=== PATIENT | female | born 1960 | race Caucasian/White ===

== ENCOUNTER → 2017-04-13 | Outpatient (CLI) | payer BC ==
[~2017-04-13] MED LIST: AUGMENTIN 875875 MG PO; COREG3.125 MG PO; DEXILANT60 M1 PO; DIOVAN80 M1 PO; LEVOFLOXACIN500 MG PO; PHARMASSURE L-500 MG PO; PREDNISONE10 MG PO; PREDNISONE20 M1 PO; ROBITUSSIN AC 110 ML PO; VALIUM5 MG PO; VICODIN 5/500 505 MG PO; VICODIN ES 7501 TAB PO
== END | disposition home or self-care (01) ==
LOC: RAD 14:11
DX: M25.561 Pain in right knee (principal)

== ENCOUNTER 2017-04-30 16:55 | Emergency (ER) | payer BC ==
[~2017-04-30] VITALS: Ht 152.4 cm; Wt 61.2 kg
[2017-04-30] MEDS ORDERED: ANAPROX DS550 MG PO (19:05)
== END 2017-04-30 19:13 | disposition home or self-care (01) ==
LOC: ED 16:55
DX: M25.561 Pain in right knee (principal); M25.551 Pain in right hip; F17.200 Nicotine dependence, unspecified, uncomplicated; Z79.899 Other long term (current) drug therapy; Z91.018 Allergy to other foods; W10.9XXA Fall (on) (from) unspecified stairs and steps, initial encounter; Y93.89 Activity, other specified; Y92.89 Other specified places as the place of occurrence of the external cause; Y99.9 Unspecified external cause status

== ENCOUNTER → 2017-10-25 | Outpatient (CLI) | payer BC ==
[~2017-10-25] MED LIST changes: +ANAPROX DS550 MG PO
[2017-10-25 06:59] LABS: HEMATOCRIT 46.1 % (37.0-47.0); MEAN CORPUSCULAR HGB 31.3 pg (27.0-31.0); MEAN CORPUSCULAR HGB CONC 32.5 g/dl (33.0-37.0); MEAN PLATELET VOLUME 10.6 fl (9.6-12.3); RED BLOOD COUNT 4.8 10*6/uL (4.10-5.10); RED CELL DISTRI WIDTH 13.1 % (0-14.5)
[2017-10-25 07:13] LABS: ALKALINE PHOSPHATASE 78 U/L (45-117); BUN 8 mg/dl (7-24); CHLORIDE 107 mmol/L (98-107); CHOLESTEROL 148 mg/dL (<200); CREATININE 0.75 mg/dL (0.55-1.02); HDL CHOLESTEROL 65 mg/dl (40-60); LDL CHOLESTEROL 64 mg/dL (9-159); POTASSIUM 3.8 mmol/L (3.5-5.1); SGOT/AST 12 IU/L (3-35); SGPT/ALT 19 U/L (12-78); SODIUM 141 mmol/L (136-145); TOTAL PROTEIN 7.2 gm/dL (6.4-8.2); TRIGLYCERIDES 94 mg/dl (<150); VLDL CHOLESTEROL 19 mg/dL (6-40)
== END | disposition home or self-care (01) ==
LOC: LAB 06:18
PROVIDERS: Family Medicine
DX: I10 Essential (primary) hypertension (principal); E78.00 Pure hypercholesterolemia, unspecified; E55.9 Vitamin D deficiency, unspecified; G47.00 Insomnia, unspecified

== ENCOUNTER 2018-05-18 06:40 | Inpatient (IN) | payer BC ==
--- NOTE | ~2018-05-18 | EKG ---
[place], [place] ELECTROCARDIOGRAM REPORT NAME: CHUYITA WEBB UNIT #: [id number] ROOM: 402 DOCTOR: IAN DRAFT REPORT BIRTHDATE: [birth year] [facility] Test Date: 2018-05-18 Test Time: 07:37:29 Pat Name: CHUYITA WEBB Department: Room: 402 Gender: F [employer] Driver: : 1960 Requested By: LAN FERNANDEZ Order Number: [id number] Reading MD: Cirilo Madsen MD Measurements Intervals [place] Rate: 80 P: 61 CT: 187 QRS: 54 QRSD: 80 T: 39 QT: 368 QTc: 425 Interpretive Statements Sinus rhythm Probable anteroseptal infarct, old No previous ECG available for comparison Electronically Signed On 05-18-2018 17:43:06 PST by Cirilo Madsen MD CM:EKGRPT:ELECTROCARDIOGRAM REPORT [id number] LAN SHIELDS DRAFT REPORT LAN FERNANDEZ DO
[2018-05-18 06:44] VITALS: BP 210/96
[2018-05-18 06:49] VITALS: BP 158/88
[2018-05-18 07:38] LABS: BASO # 0.1 10*3/uL (0.0-0.1); BASO % 0.9 % (0.0-1.0); EOS # 0.2 10*3/uL (0.0-0.4); EOS % 1.5 % (1.0-4.0); HEMATOCRIT 42.7 % (37.0-47.0); HEMOGLOBIN 14.9 g/dl (12.0-16.0); LYMPH # 2.7 10*3/uL (1.3-4.4); LYMPH % 22.7 % (27.0-41.0); MEAN CELL VOLUME 94.5 fl (81.0-99.0); MEAN CORPUSCULAR HGB CONC 34.9 g/dl (33.0-37.0); MEAN PLATELET VOLUME 10.1 fl (9.6-12.3); MONO # 0.8 10*3/uL (0.1-1.0); MONO % 6.8 % (3.0-9.0); NEUT # 7.9 10*3/uL (2.3-7.9); NEUT % 67.9 % (47.0-73.0); PLATELET COUNT AUTOMATED 337 10*3/uL (130-400); RED BLOOD COUNT 4.52 10*6/uL (4.10-5.10); RED CELL DISTRI WIDTH 12.7 % (0-14.5); WHITE BLOOD COUNT 11.7 10*3/uL (4.8-10.8)
[2018-05-18 07:46] LABS: ACT PARTIAL THROMBO TIME 23.9 SECONDS (20.8-31.5)
[2018-05-18 07:58] LABS: ALBUMIN 3.8 gm/dl (3.1-4.5); ALKALINE PHOSPHATASE 74 U/L (45-117); BUN 10 mg/dl (7-24); CHLORIDE 109 mmol/L (98-107); CREATININE 0.72 mg/dL (0.55-1.02); LIPASE 177 U/L (73-393); POTASSIUM 4.1 mmol/L (3.5-5.1); SGOT/AST 20 IU/L (3-35); SGPT/ALT 24 U/L (12-78); SODIUM 143 mmol/L (136-145); TOTAL PROTEIN 7.4 gm/dL (6.4-8.2); TROPONIN I < 0.015 ng/ml (<0.045)
[2018-05-18 10:05] VITALS: BP 143/90
[2018-05-18] MEDS ORDERED: OMEPRAZOLE40 MG PO (11:17)
[2018-05-18] MEDS ORDERED: LOSARTAN POTASS50 M1 PO (11:17)
[2018-05-18 12:00] VITALS: BP 138/77
[2018-05-18 16:00] VITALS: BP 124/74
[2018-05-18 20:00] VITALS: BP 130/73
[2018-05-19] VITALS: BP 120/64
[2018-05-19 06:42] LABS: BASO % 0.1 % (0.0-1.0); HEMATOCRIT 40.9 % (37.0-47.0); HEMOGLOBIN 13.6 g/dl (12.0-16.0); LYMPH # 1.4 10*3/uL (1.3-4.4); LYMPH % 7.3 % (27.0-41.0); MEAN CELL VOLUME 95.6 fl (81.0-99.0); MEAN CORPUSCULAR HGB 31.8 pg (27.0-31.0); MEAN CORPUSCULAR HGB CONC 33.3 g/dl (33.0-37.0); MEAN PLATELET VOLUME 10.6 fl (9.6-12.3); MONO # 0.6 10*3/uL (0.1-1.0); MONO % 3.2 % (3.0-9.0); NEUT # 16.5 10*3/uL (2.3-7.9); NEUT % 88.6 % (47.0-73.0); PLATELET COUNT AUTOMATED 331 10*3/uL (130-400); RED BLOOD COUNT 4.28 10*6/uL (4.10-5.10); RED CELL DISTRI WIDTH 12.6 % (0-14.5); WHITE BLOOD COUNT 18.7 10*3/uL (4.8-10.8)
[2018-05-19 07:14] LABS: CHLORIDE 110 mmol/L (98-107); POTASSIUM 4.2 mmol/L (3.5-5.1); SGPT/ALT 21 U/L (12-78); SODIUM 140 mmol/L (136-145)
[2018-05-19 07:38] LABS: ALBUMIN 3.6 gm/dl (3.1-4.5); ALKALINE PHOSPHATASE 72 U/L (45-117); BUN 13 mg/dl (7-24); CHOLESTEROL 159 mg/dL (<200); FREE T4 0.97 ng/dl (0.76-1.46); HDL CHOLESTEROL 65 mg/dl (40-60); LDL CHOLESTEROL 74 mg/dL (9-159); PHOSPHOROUS 3.5 mg/dL (2.5-4.9); SGOT/AST 10 IU/L (3-35); THYROID STIM HORMONE (HS) 0.322 uIU/ml (0.358-4.75); TOTAL PROTEIN 7.3 gm/dL (6.4-8.2); TRIGLYCERIDES 98 mg/dl (<150); VLDL CHOLESTEROL 20 mg/dL (6-40)
[2018-05-19 08:00] VITALS: BP 113/58
[2018-05-19 08:09] LABS: VITAMIN D, 25-HYDROXY 20.5 ng/mL (30-100)
[2018-05-19 12:00] VITALS: BP 125/72
[2018-05-19 16:00] VITALS: BP 143/79
[2018-05-19 20:00] VITALS: BP 131/70
[2018-05-20] VITALS: BP 132/70
[2018-05-20 04:00] VITALS: BP 142/70
[2018-05-20 06:59] LABS: BASO % 0.1 % (0.0-1.0); HEMATOCRIT 40.9 % (37.0-47.0); HEMOGLOBIN 13.3 g/dl (12.0-16.0); LYMPH # 1.5 10*3/uL (1.3-4.4); LYMPH % 8.4 % (27.0-41.0); MEAN CELL VOLUME 97.8 fl (81.0-99.0); MEAN CORPUSCULAR HGB 31.8 pg (27.0-31.0); MEAN CORPUSCULAR HGB CONC 32.5 g/dl (33.0-37.0); MEAN PLATELET VOLUME 10.7 fl (9.6-12.3); MONO # 0.6 10*3/uL (0.1-1.0); MONO % 3.1 % (3.0-9.0); NEUT # 15.7 10*3/uL (2.3-7.9); NEUT % 87.6 % (47.0-73.0); PLATELET COUNT AUTOMATED 322 10*3/uL (130-400); RED BLOOD COUNT 4.18 10*6/uL (4.10-5.10); RED CELL DISTRI WIDTH 12.8 % (0-14.5); WHITE BLOOD COUNT 17.9 10*3/uL (4.8-10.8)
[2018-05-20 07:27] LABS: BUN 16 mg/dl (7-24); CHLORIDE 111 mmol/L (98-107); POTASSIUM 4.3 mmol/L (3.5-5.1); SODIUM 142 mmol/L (136-145)
[2018-05-20 07:29] LABS: CREATININE 0.67 mg/dL (0.55-1.02)
[2018-05-20 08:00] VITALS: BP 134/71
[2018-05-20] MEDS ORDERED: VISTARIL25 M2 PO (08:36)
[2018-05-20] MEDS ORDERED: PROVENTIL HFA6.7 GM INH (08:36)
[2018-05-20] MEDS ORDERED: PREDNISONE10 MG PO (08:36)
[2018-05-20] MEDS ORDERED: VIBRAMYCIN100 MG PO (08:36)
[2018-05-20] MEDS ORDERED: VITAMIN D32000 UNI1 PO (08:36)
[2018-05-20] MEDS ORDERED: CYCLOBENZAPRINE10 MG PO (08:36)
[2018-05-20] MEDS ORDERED: NICOTINE PATCH1 EAC2 TD (10:47)
== END 2018-05-20 11:03 | disposition home or self-care (01) | DRG 192 ==
LOC: ED 06:40 → 4E 08:12 → EDHOLD 08:12 → 4E 10:33
PROVIDERS: Emergency Medicine; Internal Medicine; Registered Nurse; ADMIT Internal Medicine
DX: J44.1 Chronic obstructive pulmonary disease with (acute) exacerbation (principal); E87.8 Other disorders of electrolyte and fluid balance, not elsewhere classified; E83.41 Hypermagnesemia; K21.9 Gastro-esophageal reflux disease without esophagitis; I10 Essential (primary) hypertension; F17.200 Nicotine dependence, unspecified, uncomplicated; Z96.659 Presence of unspecified artificial knee joint; E53.8 Deficiency of other specified B group vitamins; J01.90 Acute sinusitis, unspecified; R51 Headache; Z71.6 Tobacco abuse counseling; Z91.041 Radiographic dye allergy status; Z91.018 Allergy to other foods; Z93.6 Other artificial openings of urinary tract status; Z82.49 Family history of ischemic heart disease and other diseases of the circulatory system; Z79.2 Long term (current) use of antibiotics; Z79.899 Other long term (current) drug therapy

== ENCOUNTER → 2018-09-07 | Outpatient (CLI) | payer BC ==
[~2018-09-07] MED LIST changes: +CYCLOBENZAPRINE10 MG PO; +LOSARTAN POTASS50 M1 PO; +NICOTINE PATCH1 EAC2 TD; +OMEPRAZOLE40 MG PO; +PROVENTIL HFA6.7 GM INH; +VIBRAMYCIN100 MG PO; +VISTARIL25 M2 PO; +VITAMIN D32000 UNI1 PO
[2018-09-07 12:31] LABS: ALBUMIN 4.1 gm/dl (3.1-4.5); ALKALINE PHOSPHATASE 65 U/L (45-117); BUN 16 mg/dl (7-24); CHLORIDE 107 mmol/L (98-107); CREATININE 0.84 mg/dL (0.55-1.02); SGOT/AST 18 IU/L (3-35); SGPT/ALT 20 U/L (12-78); SODIUM 141 mmol/L (136-145); TOTAL PROTEIN 7.5 gm/dL (6.4-8.2)
== END | disposition home or self-care (01) ==
LOC: LAB 11:56 → CT 13:00
PROVIDERS: Family Medicine
DX: C65.1 Malignant neoplasm of right renal pelvis (principal); N28.1 Cyst of kidney, acquired; R10.12 Left upper quadrant pain; M54.5 Low back pain; K57.90 Diverticulosis of intestine, part unspecified, without perforation or abscess without bleeding; Z90.5 Acquired absence of kidney; Z98.890 Other specified postprocedural states; Z85.528 Personal history of other malignant neoplasm of kidney

== ENCOUNTER → 2018-12-13 | Outpatient (CLI) | payer BC ==
[2018-12-13 16:46] LABS: ALBUMIN 3.7 gm/dl (3.1-4.5); ALKALINE PHOSPHATASE 77 U/L (45-117); BUN 10 mg/dl (7-24); CHLORIDE 107 mmol/L (98-107); CPK 93 U/L (26-192); CREATININE 0.77 mg/dL (0.55-1.02); FREE T4 0.93 ng/dl (0.76-1.46); POTASSIUM 4.3 mmol/L (3.5-5.1); SGOT/AST 17 IU/L (3-35); SGPT/ALT 20 U/L (12-78); SODIUM 139 mmol/L (136-145); TOTAL PROTEIN 6.9 gm/dL (6.4-8.2)
[2018-12-13 18:05] LABS: VITAMIN D, 25-HYDROXY 19.5 ng/mL (30-100)
== END | disposition home or self-care (01) ==
LOC: LAB 15:03
PROVIDERS: Family Medicine
DX: E55.9 Vitamin D deficiency, unspecified (principal); I10 Essential (primary) hypertension; M79.10 Myalgia, unspecified site; M19.91 Primary osteoarthritis, unspecified site; R53.83 Other fatigue; R51 Headache

== ENCOUNTER 2019-03-16 07:36 | Emergency (ER) | payer OTHER, BC ==
[~2019-03-16] VITALS: Ht 152.4 cm; Wt 59.0 kg
[2019-03-16] MEDS ORDERED: CYCLOBENZAPRINE10 MG PO (09:20)
[2019-03-16] MEDS ORDERED: NAPROSYN500 MG PO (09:20)
[2019-03-16] MEDS ORDERED: TYLENOL325 M1 PO (09:20)
== END 2019-03-16 09:26 | disposition home or self-care (01) ==
LOC: ED 07:36
DX: S39.012A Strain of muscle, fascia and tendon of lower back, initial encounter (principal); R07.81 Pleurodynia; R51 Headache; J44.9 Chronic obstructive pulmonary disease, unspecified; K21.9 Gastro-esophageal reflux disease without esophagitis; I10 Essential (primary) hypertension; F17.200 Nicotine dependence, unspecified, uncomplicated; Z91.018 Allergy to other foods; Z79.899 Other long term (current) drug therapy; V43.52XA Car driver injured in collision with other type car in traffic accident, initial encounter; Y93.89 Activity, other specified; Y92.413 State road as the place of occurrence of the external cause; Y99.8 Other external cause status

== ENCOUNTER → 2019-03-20 | Outpatient (CLI) | payer OTHER, BC ==
[~2019-03-20] MED LIST changes: +NAPROSYN500 MG PO; +TYLENOL325 M1 PO
== END | disposition home or self-care (01) ==
LOC: RAD 12:54
DX: M47.817 Spondylosis without myelopathy or radiculopathy, lumbosacral region (principal); M47.812 Spondylosis without myelopathy or radiculopathy, cervical region; M54.6 Pain in thoracic spine; M25.552 Pain in left hip; M25.551 Pain in right hip; R07.81 Pleurodynia

== ENCOUNTER → 2019-05-05 | Outpatient (CLI) | payer OTHER, BC | END | disposition home or self-care (01) | LOC: RAD 12:29 | DX: R07.81 Pleurodynia (principal) ==

== ENCOUNTER → 2019-11-20 | Outpatient (CLI) | payer BC ==
[2019-11-20 07:40] LABS: HEMATOCRIT 44.7 % (37.0-47.0); MEAN CELL VOLUME 92.2 fl (81.0-99.0); MEAN CORPUSCULAR HGB 31.5 pg (27.0-31.0); MEAN CORPUSCULAR HGB CONC 34.2 g/dl (33.0-37.0); MEAN PLATELET VOLUME 10.6 fl (9.6-12.3); RED BLOOD COUNT 4.85 10*6/uL (4.10-5.10); RED CELL DISTRI WIDTH 12.3 % (0-14.5); WHITE BLOOD COUNT 8.3 10*3/uL (4.8-10.8)
[2019-11-20 07:50] LABS: ALKALINE PHOSPHATASE 85 U/L (45-117); BUN 13 mg/dl (7-24); CHLORIDE 103 mmol/L (98-107); CHOLESTEROL 177 mg/dL (<200); CREATININE 0.78 mg/dL (0.55-1.02); HDL CHOLESTEROL 74 mg/dl (40-60); LDL CHOLESTEROL 78 mg/dL (9-159); POTASSIUM 3.1 mmol/L (3.5-5.1); SGOT/AST 12 IU/L (3-35); SGPT/ALT 23 U/L (12-78); SODIUM 138 mmol/L (136-145); TOTAL PROTEIN 7.6 gm/dL (6.4-8.2); TRIGLYCERIDES 123 mg/dl (<150); VLDL CHOLESTEROL 25 mg/dL (6-40)
[2019-11-21 07:06] LABS: RHEUMATOID ARTHRITIS FACTOR 10.1 IU/mL (0.0-13.9)
[2019-11-21 14:07] LABS: ANTI-DSDNA ANTIBODIES 1 IU/mL (0-9)
== END | disposition home or self-care (01) ==
LOC: LAB 07:08
PROVIDERS: Family Medicine
DX: E78.00 Pure hypercholesterolemia, unspecified (principal); R53.83 Other fatigue; E55.9 Vitamin D deficiency, unspecified; M25.50 Pain in unspecified joint

== ENCOUNTER 2020-08-13 17:48 | Emergency (ER) | payer BC ==
[~2020-08-13] VITALS: Ht 152.4 cm; Wt 59.0 kg
== END 2020-08-13 21:26 | disposition home or self-care (01) ==
LOC: ED 17:48
DX: M76.61 Achilles tendinitis, right leg (principal); Z91.041 Radiographic dye allergy status; Z79.899 Other long term (current) drug therapy; Z98.890 Other specified postprocedural states; Z96.653 Presence of artificial knee joint, bilateral; Z90.5 Acquired absence of kidney

== ENCOUNTER → 2020-08-26 | Outpatient (CLI) | payer BC | END | disposition home or self-care (01) | LOC: MRI 00:07 | PROVIDERS: ATTEND Family Medicine | DX: S93.402A Sprain of unspecified ligament of left ankle, initial encounter (principal); M65.872 Other synovitis and tenosynovitis, left ankle and foot; M76.62 Achilles tendinitis, left leg; M25.472 Effusion, left ankle; M21.6X2 Other acquired deformities of left foot; M77.32 Calcaneal spur, left foot; M67.962 Unspecified disorder of synovium and tendon, left lower leg; X58.XXXA Exposure to other specified factors, initial encounter; Y93.89 Activity, other specified; Y92.89 Other specified places as the place of occurrence of the external cause; Y99.8 Other external cause status ==

== ENCOUNTER → 2021-04-01 | Outpatient (CLI) | payer BC ==
[2021-04-01 08:52] LABS: HEMATOCRIT 42.5 % (37.0-47.0); MEAN CELL VOLUME 92.6 fl (81.0-99.0); MEAN CORPUSCULAR HGB 31.8 pg (27.0-31.0); MEAN CORPUSCULAR HGB CONC 34.4 g/dl (33.0-37.0); MEAN PLATELET VOLUME 10.4 fl (9.6-12.3); RED BLOOD COUNT 4.59 10*6/uL (4.10-5.10)
[2021-04-01 09:08] LABS: ALBUMIN 3.8 gm/dl (3.1-4.5); ALKALINE PHOSPHATASE 87 U/L (45-117); BUN 14 mg/dl (7-24); CHLORIDE 106 mmol/L (98-107); CHOLESTEROL 181 mg/dL (<200); CREATININE 0.66 mg/dL (0.55-1.02); LDL CHOLESTEROL 75 mg/dL (9-159); POTASSIUM 3.5 mmol/L (3.5-5.1); SGOT/AST 15 IU/L (3-35); SGPT/ALT 27 U/L (12-78); SODIUM 138 mmol/L (136-145); TOTAL PROTEIN 7.7 gm/dL (6.4-8.2); TRIGLYCERIDES 119 mg/dl (<150)
[2021-04-01 09:50] LABS: VITAMIN D, 25-HYDROXY 14.6 ng/mL (30-100)
== END | disposition home or self-care (01) ==
LOC: LAB 08:22
PROVIDERS: ATTEND Family Medicine
DX: Z00.00 Encounter for general adult medical examination without abnormal findings (principal); I10 Essential (primary) hypertension; K21.9 Gastro-esophageal reflux disease without esophagitis; F41.1 Generalized anxiety disorder; E74.00 Glycogen storage disease, unspecified; E55.9 Vitamin D deficiency, unspecified; R53.83 Other fatigue

== ENCOUNTER → 2022-01-09 | Outpatient (CLI) | payer BC ==
[2022-01-09 07:42] LABS: HEMATOCRIT 45.3 % (37.0-47.0); MEAN PLATELET VOLUME 10.4 fl (9.6-12.3); RED BLOOD COUNT 4.82 10*6/uL (4.10-5.10); RED CELL DISTRI WIDTH 12.9 % (0-14.5); WHITE BLOOD COUNT 8.6 10*3/uL (4.8-10.8)
[2022-01-09 08:02] LABS: ALKALINE PHOSPHATASE 108 U/L (45-117); BUN 14 mg/dl (7-24); CHLORIDE 108 mmol/L (98-107); CHOLESTEROL 209 mg/dL (<200); CREATININE 0.78 mg/dL (0.55-1.02); LDL CHOLESTEROL 104 mg/dL (9-159); POTASSIUM 3.7 mmol/L (3.5-5.1); SGOT/AST 16 IU/L (3-35); SGPT/ALT 27 U/L (12-78); SODIUM 142 mmol/L (136-145); TOTAL PROTEIN 7.8 gm/dL (6.4-8.2); TRIGLYCERIDES 125 mg/dl (<150)
[2022-01-09 08:39] LABS: VITAMIN D, 25-HYDROXY 49.5 ng/mL (30-100)
== END | disposition home or self-care (01) ==
LOC: LAB 07:21
PROVIDERS: ATTEND Family Medicine
DX: Z00.00 Encounter for general adult medical examination without abnormal findings (principal); E74.00 Glycogen storage disease, unspecified; K21.9 Gastro-esophageal reflux disease without esophagitis; F41.1 Generalized anxiety disorder; E55.9 Vitamin D deficiency, unspecified; F90.9 Attention-deficit hyperactivity disorder, unspecified type

== ENCOUNTER 2022-07-23 09:50 | Observation (INO) | payer BC ==
[2022-07-23] VITALS (8 sets, daily range): BP systolic 105–180; BP diastolic 51–84
[~2022-07-23] VITALS: Ht 152.4 cm; Wt 63.8 kg
[2022-07-23 10:20] LABS: BASO # 0.1 10*3/uL (0.0-0.1); BASO % 0.8 % (0.0-1.0); EOS # 0.1 10*3/uL (0.0-0.4); HEMATOCRIT 42.3 % (37.0-47.0); LYMPH # 2.6 10*3/uL (1.3-4.4); LYMPH % 24.3 % (27.0-41.0); MEAN CELL VOLUME 90.8 fl (81.0-99.0); MEAN CORPUSCULAR HGB CONC 35.2 g/dl (33.0-37.0); MONO # 0.7 10*3/uL (0.1-1.0); MONO % 6.5 % (3.0-9.0); NEUT # 7.3 10*3/uL (2.3-7.9); NEUT % 67.1 % (47.0-73.0); PLATELET COUNT AUTOMATED 313 10*3/uL (130-400); RED BLOOD COUNT 4.66 10*6/uL (4.10-5.10); RED CELL DISTRI WIDTH 13.2 % (0-14.5); WHITE BLOOD COUNT 10.9 10*3/uL (4.8-10.8)
[2022-07-23] MEDS ORDERED: MIXED AMPHETAMI20 MG PO (10:20)
[2022-07-23 10:30] LABS: ACT PARTIAL THROMBO TIME 27.5 SECONDS (20.0-32.1)
[2022-07-23 10:38] LABS: ALKALINE PHOSPHATASE 79 U/L (46-116); BUN 17 mg/dl (9-23); CHLORIDE 103 mmol/L (98-107); SGPT/ALT 19 U/L (10-49); TOTAL PROTEIN 6.9 gm/dL (6.0-8.0)
[2022-07-23 14:20] LABS: CHOLESTEROL 158 mg/dL (<200); LDL CHOLESTEROL 71 mg/dL (9-159); TRIGLYCERIDES 96 mg/dl (<150)
[2022-07-23] MEDS ORDERED: ZOLOFT50 MG PO (18:52)
[2022-07-23] MEDS ORDERED: ZOLOFT25 MG PO (18:53)
[2022-07-23] MEDS ORDERED: AMLODIPINE BESY10 MG PO (22:22)
[2022-07-23] MEDS ORDERED: HYDROCHLOROTHIA25 M1 PO (22:22)
[2022-07-24 06:49] LABS: BASO % 0.2 % (0.0-1.0); LYMPH # 0.8 10*3/uL (1.3-4.4); LYMPH % 9.1 % (27.0-41.0); MEAN CELL VOLUME 92.6 fl (81.0-99.0); MEAN CORPUSCULAR HGB 31.4 pg (27.0-31.0); MEAN CORPUSCULAR HGB CONC 33.9 g/dl (33.0-37.0); MEAN PLATELET VOLUME 10.8 fl (9.6-12.3); MONO # 0.1 10*3/uL (0.1-1.0); MONO % 0.9 % (3.0-9.0); NEUT # 8.1 10*3/uL (2.3-7.9); NEUT % 89.4 % (47.0-73.0); PLATELET COUNT AUTOMATED 321 10*3/uL (130-400); RED BLOOD COUNT 4.43 10*6/uL (4.10-5.10); RED CELL DISTRI WIDTH 13.1 % (0-14.5); WHITE BLOOD COUNT 9.1 10*3/uL (4.8-10.8)
[2022-07-24 07:01] LABS: BUN 17 mg/dl (9-23); CHLORIDE 111 mmol/L (98-107); POTASSIUM 3.4 mmol/L (3.4-5.1)
[2022-07-24 08:00] VITALS: BP 125/66
== END 2022-07-24 15:04 | disposition home or self-care (01) ==
LOC: ED 09:50 → EDHOLD 12:32 → 5E 20:28
PROVIDERS: Emergency Medicine; ADMIT Internal Medicine; ATTEND Internal Medicine
DX: R07.2 Precordial pain (principal); I10 Essential (primary) hypertension; K21.9 Gastro-esophageal reflux disease without esophagitis; E55.9 Vitamin D deficiency, unspecified; E53.8 Deficiency of other specified B group vitamins; Z98.890 Other specified postprocedural states; Z91.041 Radiographic dye allergy status; Z72.0 Tobacco use; Z78.9 Other specified health status; Z79.899 Other long term (current) drug therapy

== ENCOUNTER → 2022-09-28 | Outpatient (CLI) | payer BC ==
[~2022-09-28] MED LIST changes: +AMLODIPINE BESY10 MG PO; +HYDROCHLOROTHIA25 M1 PO; +MIXED AMPHETAMI20 MG PO; +ZOLOFT25 MG PO; +ZOLOFT50 MG PO
== END | disposition home or self-care (01) ==
LOC: RAD 09:55
PROVIDERS: ATTEND Thoracic Surgery (Cardiothoracic Vascular Surgery)
DX: J43.9 Emphysema, unspecified (principal); Z90.2 Acquired absence of lung [part of]; J93.9 Pneumothorax, unspecified

== ENCOUNTER → 2022-11-02 | Outpatient (CLI) | payer BC | LOC: US 12:52 | PROVIDERS: ATTEND Family Medicine | DX: N28.1 Cyst of kidney, acquired (principal); Z85.118 Personal history of other malignant neoplasm of bronchus and lung ==

== ENCOUNTER → 2023-03-10 | Outpatient (CLI) | payer BC | END | disposition home or self-care (01) | LOC: CT 10:00 | PROVIDERS: ATTEND Thoracic Surgery (Cardiothoracic Vascular Surgery) | DX: Z90.2 Acquired absence of lung [part of] (principal); I25.10 Atherosclerotic heart disease of native coronary artery without angina pectoris ==

== ENCOUNTER → 2023-08-02 | Outpatient (CLI) | payer BC | END | disposition home or self-care (01) | LOC: RAD 13:34 | PROVIDERS: ATTEND Family Medicine | DX: M47.812 Spondylosis without myelopathy or radiculopathy, cervical region (principal); M48.02 Spinal stenosis, cervical region; M43.12 Spondylolisthesis, cervical region; M54.10 Radiculopathy, site unspecified ==

== ENCOUNTER → 2023-09-02 | Outpatient (CLI) | payer BC | END | disposition home or self-care (01) | LOC: CT 00:08 | PROVIDERS: ATTEND Thoracic Surgery (Cardiothoracic Vascular Surgery) | DX: J43.9 Emphysema, unspecified (principal); I25.10 Atherosclerotic heart disease of native coronary artery without angina pectoris; J84.10 Pulmonary fibrosis, unspecified; Z90.2 Acquired absence of lung [part of] ==

== ENCOUNTER → 2023-12-14 | Outpatient (CLI) | payer BC ==
[2023-12-14 13:25] LABS: HEMATOCRIT 39.5 % (37.0-47.0); MEAN CELL VOLUME 90.2 fl (81.0-99.0); MEAN CORPUSCULAR HGB 31.5 pg (27.0-31.0); MEAN CORPUSCULAR HGB CONC 34.9 g/dl (33.0-37.0); RED BLOOD COUNT 4.38 10*6/uL (4.10-5.10); RED CELL DISTRI WIDTH 13.6 % (0-14.5)
[2023-12-14 13:48] LABS: ALKALINE PHOSPHATASE 83 U/L (46-116); BUN 14 mg/dl (9-23); CHLORIDE 106 mmol/L (98-107); CHOLESTEROL 158 mg/dL (<200); LDL CHOLESTEROL 69 mg/dL (9-159); POTASSIUM 3.4 mmol/L (3.4-5.1); SGPT/ALT 15 U/L (5-49); TOTAL PROTEIN 7.2 gm/dL (6.0-8.0); TRIGLYCERIDES 117 mg/dl (<150)
[2023-12-14 14:09] LABS: VITAMIN D, 25-HYDROXY 27.1 ng/mL (30-100)
== END | disposition home or self-care (01) ==
LOC: LAB 13:12
PROVIDERS: ATTEND Family Medicine
DX: E78.00 Pure hypercholesterolemia, unspecified (principal); R53.83 Other fatigue; E55.9 Vitamin D deficiency, unspecified; K21.9 Gastro-esophageal reflux disease without esophagitis; I10 Essential (primary) hypertension

== ENCOUNTER 2023-12-31 16:26 | Emergency (ER) | payer BC ==
[~2023-12-31] VITALS: Ht 152.4 cm; Wt 59.0 kg
[2023-12-31] MEDS ORDERED: hydrOXYzine pamoate 25 MG CAP PO ONE (16:50)
[2023-12-31 17:01] LABS: BASO # 0.1 10*3/uL (0.0-0.1); EOS # 0.1 10*3/uL (0.0-0.4); EOS % 0.4 % (1.0-4.0); HEMATOCRIT 42.7 % (37.0-47.0); LYMPH # 3.5 10*3/uL (1.3-4.4); LYMPH % 27.7 % (27.0-41.0); MEAN CELL VOLUME 91.8 fl (81.0-99.0); MEAN CORPUSCULAR HGB 30.3 pg (27.0-31.0); MEAN PLATELET VOLUME 9.9 fl (9.6-12.3); MONO # 1.1 10*3/uL (0.1-1.0); MONO % 8.5 % (3.0-9.0); NEUT # 7.8 10*3/uL (2.3-7.9); NEUT % 62.2 % (47.0-73.0); PLATELET COUNT AUTOMATED 407 10*3/uL (130-400); RED BLOOD COUNT 4.65 10*6/uL (4.10-5.10); RED CELL DISTRI WIDTH 13.3 % (0-14.5); WHITE BLOOD COUNT 12.6 10*3/uL (4.8-10.8)
[2023-12-31 17:17] LABS: POTASSIUM 3.3 mmol/L (3.4-5.1)
[2023-12-31 17:20] LABS: ACT PARTIAL THROMBO TIME 27.4 SECONDS (20.0-32.1)
[2023-12-31 18:19] LABS: BILIRUBIN Negative (Negative); BLOOD Negative (Negative); CLARITY Clear (Clear); COLOR Yellow (Yellow); GLUCOSE Negative (Negative); KETONE Negative (Negative); LEUKO ESTERASE 1+ (Negative); NITRITE Negative (Negative); PH 7.5 (4.5-8.0); SPECIFIC GRAVITY 1.015 (1.001-1.030)
[2023-12-31 18:29] LABS: EPITHELIAL CELLS 0-2
[2023-12-31 18:30] LABS: RBC 0-2 rbc/hpf (0-2)
== END 2023-12-31 18:53 | disposition home or self-care (01) ==
LOC: ED 16:26
PROVIDERS: Physician Assistant Medical
DX: F41.9 Anxiety disorder, unspecified (principal); R20.0 Anesthesia of skin; J44.9 Chronic obstructive pulmonary disease, unspecified; K21.9 Gastro-esophageal reflux disease without esophagitis; I10 Essential (primary) hypertension; Z91.018 Allergy to other foods; Z91.041 Radiographic dye allergy status; Z98.890 Other specified postprocedural states; Z72.0 Tobacco use

== ENCOUNTER → 2024-01-06 | Outpatient (CLI) | payer BC ==
[2024-01-06 12:40] LABS: POTASSIUM 3.8 mmol/L (3.4-5.1)
== END | disposition home or self-care (01) ==
LOC: LAB 11:43
PROVIDERS: ATTEND Family Medicine
DX: N17.9 Acute kidney failure, unspecified (principal)

== ENCOUNTER → 2024-01-18 | Outpatient (CLI) | payer BC ==
[2024-01-18 10:42] LABS: HEMATOCRIT 41.4 % (37.0-47.0); MEAN CELL VOLUME 93.2 fl (81.0-99.0); MEAN CORPUSCULAR HGB 30.2 pg (27.0-31.0); MEAN CORPUSCULAR HGB CONC 32.4 g/dl (33.0-37.0); MEAN PLATELET VOLUME 9.9 fl (9.6-12.3); RED BLOOD COUNT 4.44 10*6/uL (4.10-5.10); RED CELL DISTRI WIDTH 13.2 % (0-14.5); WHITE BLOOD COUNT 7.3 10*3/uL (4.8-10.8)
[2024-01-18 11:04] LABS: ALKALINE PHOSPHATASE 78 U/L (46-116); BUN 11 mg/dl (9-23); CHLORIDE 104 mmol/L (98-107); POTASSIUM 3.7 mmol/L (3.4-5.1); SGPT/ALT 17 U/L (5-49); TOTAL PROTEIN 7.1 gm/dL (6.0-8.0)
== END | disposition home or self-care (01) ==
LOC: LAB 10:21
PROVIDERS: ATTEND Family Medicine
DX: E87.6 Hypokalemia (principal); M79.10 Myalgia, unspecified site; M26.602 Left temporomandibular joint disorder, unspecified; M25.59 Pain in other specified joint

== ENCOUNTER → 2024-01-25 | Outpatient (CLI) | payer BC | END | disposition home or self-care (01) | LOC: LAB 10:01 | PROVIDERS: ATTEND Family Medicine | DX: R76.0 Raised antibody titer (principal) ==

== ENCOUNTER → 2024-08-23 | Outpatient (CLI) | payer BC | END | disposition home or self-care (01) | LOC: MAMMO 08:11 | PROVIDERS: ATTEND Family Medicine | DX: Z12.31 Encounter for screening mammogram for malignant neoplasm of breast (principal); R92.323 Mammographic fibroglandular density, bilateral breasts ==

== ENCOUNTER → 2024-10-03 | Outpatient (CLI) | payer BC ==
[2024-10-03 11:39] LABS: HEMATOCRIT 42.8 % (37.0-47.0); MEAN CELL VOLUME 89.9 fl (81.0-99.0); MEAN CORPUSCULAR HGB 30.7 pg (27.0-31.0); MEAN CORPUSCULAR HGB CONC 34.1 g/dl (33.0-37.0); MEAN PLATELET VOLUME 9.9 fl (9.6-12.3); RED BLOOD COUNT 4.76 10*6/uL (4.10-5.10); RED CELL DISTRI WIDTH 12.5 % (0-14.5); WHITE BLOOD COUNT 7.3 10*3/uL (4.8-10.8)
[2024-10-03 12:01] LABS: ALKALINE PHOSPHATASE 79 U/L (46-116); BUN 18 mg/dl (9-23); CHLORIDE 103 mmol/L (98-107); CHOLESTEROL 142 mg/dL (<200); CPK 85 U/L (34-171); LDL CHOLESTEROL 59 mg/dL (9-159); POTASSIUM 3.5 mmol/L (3.4-5.1); SGPT/ALT 14 U/L (5-49); TRIGLYCERIDES 91 mg/dl (<150)
== END | disposition home or self-care (01) ==
LOC: LAB 11:16
PROVIDERS: ATTEND Family Medicine
DX: I10 Essential (primary) hypertension (principal); E78.00 Pure hypercholesterolemia, unspecified; I48.91 Unspecified atrial fibrillation; K21.9 Gastro-esophageal reflux disease without esophagitis

== ENCOUNTER → 2024-12-13 | Outpatient (CLI) | payer BC ==
[2024-12-13 11:10] LABS: MEAN CELL VOLUME 91.8 fl (81.0-99.0); MEAN CORPUSCULAR HGB 30.5 pg (27.0-31.0); MEAN PLATELET VOLUME 10.3 fl (9.6-12.3); NUCLEATED RED BLOOD CELL 0.0 % (0.0-0.0); NUCLEATED RED BLOOD CELL 0.0 10*3/uL (0.0-0.0); PLATELET COUNT AUTOMATED 376.0 10*3/uL (130-400); RED CELL DISTRI WIDTH 12.9 % (0-14.5)
[2024-12-13 11:11] LABS: BILIRUBIN Negative (Negative); BLOOD Negative (Negative); CLARITY Clear (Clear); COLOR Yellow (Yellow); KETONE Negative (Negative); LEUKO ESTERASE Trace (Negative); NITRITE Negative (Negative); PH 7.0 (4.5-8.0); SPECIFIC GRAVITY 1.015 (1.001-1.030); UROBILINOGEN 1.0 E.U./dl (0.0-1.0)
[2024-12-13 11:22] LABS: BACTERIA 1+; EPITHELIAL CELLS 0-2; MUCOUS TRACE
[2024-12-13 11:37] LABS: BUN 15 mg/dl (9-23); FREE T4 1.42 ng/dl (0.89-1.76); SGPT/ALT 16 U/L (5-49)
== END | disposition home or self-care (01) ==
LOC: LAB 10:48
PROVIDERS: ATTEND Family Medicine
DX: J44.9 Chronic obstructive pulmonary disease, unspecified (principal); R05.9 Cough, unspecified; I10 Essential (primary) hypertension; E11.9 Type 2 diabetes mellitus without complications; R53.83 Other fatigue; K21.9 Gastro-esophageal reflux disease without esophagitis; Z90.2 Acquired absence of lung [part of]

== ENCOUNTER → 2025-04-04 | Outpatient (CLI) | payer BC ==
[~2025-04-04] MED LIST changes: +Iodixanol 320 100 ML VIAL IV ONE; +Iodixanol 320 100 ML VIAL ONE
== END | disposition home or self-care (01) ==
LOC: CT 03-27 15:00
PROVIDERS: ATTEND Family Medicine
DX: C34.00 Malignant neoplasm of unspecified main bronchus (principal); J43.2 Centrilobular emphysema; J98.11 Atelectasis